=== PATIENT | female | born 1955 | race Caucasian/White ===

== ENCOUNTER 2018-01-22 08:31 | Outpatient (CLI) | payer OTHER ==
--- NOTE | 2018-01-22 13:43 | MRI ---
MRI BRAIN WITH AND WITHOUT CONTRAST: MRI SKULL BASE/FACIAL NERVES WITH AND WITHOUT CONTRAST: CLINICAL HISTORY: Right Hatfield's palsy. No prior comparison. FINDINGS: The ventricular system is normal in size. There is no mass effect, midline shift, or acute territori al infarction. There is a prominent right mastoid effusion. At the lateral aspect of the canalicula r segment of the right facial nerve, there is focal enhancement, which does extend laterally to invol ve the geniculate and tympanic, as well as mastoid, segments. Enhancement also extends along the inf erior coursing mastoid segment. The finding is asymmetric, relative to the left. There is no pathologic intraaxial enhancement. There is abnormal signal alteration related to a mass situated within the sella, predominantly to the left of midline, with relative hypoenhancement, compared to the adjacent pituitary gland. This find ing is incompletely assessed on the basis of this exam and warrants further dedicated imaging followu p. IMPRESSION: 1. Evidence of pathologic enhancement involving the right facial nerve, from the lateral canalicular aspect and throughout the intratemporal course. This may relate to a viral neuritis, in the correct clinical context. Given a tiny nodular component at the lateral canalicular segment, on the magnitu de of 2 mm in size, recommended follow-up imaging upon completion of treatment regimen and resolution of symptoms, to confirm resolution and to exclude underlying nodularity, which could potentially rel ate to neoplasm. 2. Incidental note of abnormal mass of the sella, incompletely evaluated on the basis of this exam. Recommend dedicated follow-up pituitary protocol pre and post contrast MRI for further characterizat ion. Findings telephoned to the patient's joy operator helper, Reynaldo Chen, at the time of this dictat ion (1315 hours), 01/22/2018 CODE CR POS: [facility]
[2018-01-22] MEDS ORDERED: Gadobenate Dimeglumine 529 MG/1 ML (20ML VIAL) ONE (15:07)
== END 2018-01-22 08:32 | disposition home or self-care (01) ==
LOC: MRI 08:31
PROVIDERS: ATTEND Otolaryngology
DX: Z01.812 Encounter for preprocedural laboratory examination (principal); G51.0 Bell's palsy; H90.A21 Sensorineural hearing loss, unilateral, right ear, with restricted hearing on the contralateral side
CPT/HCPCS: 70553; 82565; A9579

== ENCOUNTER 2020-07-21 15:42 | Outpatient (CLI) | payer MEDICARE, OTHER ==
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
== END 2020-07-21 15:43 | disposition home or self-care (01) ==
LOC: TBSIIMAG 15:42
PROVIDERS: ATTEND Neurological Surgery
DX: S12.9XXA Fracture of neck, unspecified, initial encounter (principal)
CPT/HCPCS: 72040

== ENCOUNTER 2020-10-14 09:16 | Outpatient (CLI) | payer MEDICARE ==
[2020-10-14 10:50] LABS: Anion Gap 15 mmol/L (10-20); BUN (Urea Nitrogen) 19 mg/dL (9.8-20.1); Calc. Creatinine Clearance 0 mL/min (70-130); Calcium 9.3 mg/dL (7.8-10.44); Carbon Dioxide 25 mmol/L (23-31); Chloride 105 mmol/L (98-107); Glucose 132 mg/dL (80-115); Sodium 141 mmol/L (136-145)
[2020-10-14 17:49] LABS: SARS-CoV-2 PCR by NAA Not Detected (NotDetected)
== END 2020-10-14 09:17 | disposition home or self-care (01) ==
LOC: LABBT 09:16
PROVIDERS: ATTEND Neurological Surgery
DX: Z01.818 Encounter for other preprocedural examination (principal); I72.9 Aneurysm of unspecified site; Z20.822 Contact with and (suspected) exposure to COVID-19
CPT/HCPCS: 80048; 93005; U0003; U0005; 87635; 93010

== ENCOUNTER → 2020-10-19 | Day surgery (SDC) | payer MEDICARE ==
[2020-10-18 10:26] VITALS: BMI 42.4
[~2020-10-19] MED LIST: Fentanyl 100 MCG/2 ML VIAL ONE; Heparin 10,000 UNITS/ 10 ML VIAL ONE; Iopamidol 370 76% 100 ML VIAL ONE; Lidocaine 1% (PF) 30 ML VIAL ONE
== END ==
LOC: CCL 07:40
PROVIDERS: ATTEND Neurological Surgery
PROC: B3181ZZ Fluoroscopy of Bilateral Internal Carotid Arteries using Low Osmolar Contrast (ICD-10-PCS; principal; 2020-10-19)
DX: I67.1 Cerebral aneurysm, nonruptured (principal); Z79.82 Long term (current) use of aspirin; Z79.84 Long term (current) use of oral hypoglycemic drugs; Z79.899 Other long term (current) drug therapy; Z88.6 Allergy status to analgesic agent
CPT/HCPCS: 36223; 76942; J1644; J2001; J3010; Q9967